=== PATIENT | male | born 1995 | race Caucasian/White ===

== ENCOUNTER 2019-01-31 14:28 | Emergency (ER) | payer BC, OTHER ==
[~2019-01-31] VITALS: Ht 190.5 cm; Wt 135.2 kg
[2019-01-31 14:39] VITALS: BP 129/75
--- NOTE | 2019-01-31 14:53 | PHYS DOC ---
Past History Past Medical History: No Pertinent History Past Surgical History: No Surgical History Smoking: Quit Greater Than 1 Year Alcohol Use: Rarely Drug Use: None Adult General Chief Complaint Chief Complaint: COUGH HPI HPI Patient is a 23-year-old male presents with cough, nasal congestion, and sore throat. Symptoms started 3 days ago. He has some generalized body aches. Chest discomfort with coughing. Nonproductive cough. No fever. No relief with DayQuil or NyQuil or Sudafed. No nausea or vomiting. No recent travel. No sick family members. 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 He is a former smoker. Symptoms are moderate in intensity.[] Review of Systems Review of Systems Constitutional: Denies fever or chills [] Eyes: Denies change in visual acuity, redness, or eye pain [] HENT: See history of present illness, no ear pain, no dental pain. No nosebleed.[] Respiratory: Denies shortness of breath, see history of present illness [] Cardiovascular: No chest pain or palpitations[] GI: Denies abdominal pain, nausea, vomiting, bloody stools or diarrhea [] : Denies dysuria or hematuria [] Musculoskeletal: Denies back pain or joint pain [] Integument: Denies rash or skin lesions [] Neurologic: Denies headache, focal weakness or sensory changes [] Endocrine: Denies polyuria or polydipsia [] All other systems were reviewed and found to be within normal limits, except as documented in this note. Allergies Allergies Allergies Coded Allergies Type Severity Reaction Last Updated Verified azithromycin Allergy Unknown 01/31/19 Yes Physical Exam Physical Exam Constitutional: Well developed, well nourished, no acute distress, non-toxic appearance. [] HENT: Normocephalic, atraumatic, bilateral external ears normal, oropharynx moist, no oral exudates, nose normal. [] Eyes: PERRLA, EOMI, conjunctiva normal, no discharge. [] Neck: Normal range of motion, no tenderness, supple, no stridor. [] Cardiovascular:Heart rate regular rhythm, no murmur [] Lungs & Thorax: Bilateral breath sounds clear to auscultation [] Abdomen: Bowel sounds normal, soft, no tenderness, no masses, no pulsatile masses. [] Skin: Warm, dry, no erythema, no rash. [] Back: No tenderness, no CVA tenderness. [] Extremities: No tenderness, no cyanosis, no clubbing, ROM intact, no edema. [] Neurologic: Alert and oriented X 3, normal motor function, normal sensory function, no focal deficits noted. [] Psychologic: Affect normal, judgement normal, mood normal. [] Current Patient Data Vital Signs Vital Signs Date Time Temp Pulse Resp B/P (MAP) Pulse Ox O2 Delivery O2 Flow Rate FiO2 01/31/19 14:39 98.4 93 16 100 Room Air EKG EKG [] Radiology/Procedures Radiology/Procedures PA and lateral chest x-ray obtained shows no evidence of pneumonia, no pneumothorax, and no pleural effusion.[] Course & Med Decision Making Course & Med Decision Making Pertinent Labs and Imaging studies reviewed. (See chart for details) ED course: Patient arrived, was placed in bed, and tolerated exam well. He was transported to and from radiology with any complications. After the return of the imaging results, findings and plan were discussed with patient and his partner who voiced understanding. All questions were answered. He was discharged in improved condition. Medical decision making: There is no evidence of pneumonia, pneumothorax, nor congestive heart failure. Patient has no PE risk factors. Believe this to be an upper respiratory infection with post nasal drainage triggering the cough reflex. Will also prescribe "just in case" antibiotics if he is not doing better with symptomatically treatment in 2 days. There is no evidence of hypoxia. [] Dragon Disclaimer Dragon Disclaimer This electronic medical record was generated, in whole or in part, using a voice recognition dictation system. Departure Departure: Impression: Primary Impression: Upper respiratory infection Additional Impression: Cough Disposition: 01 HOME, SELF-CARE Condition: IMPROVED Referrals: PCP,NO (PCP) Patient Instructions: Cough, Adult, Upper Respiratory Infection, Adult Additional Instructions: Follow-up with your regular doctor in 2 days. If you do not have a regular doctor list of local clinics will be provided for you. Drink plenty of fluids. Wait 2 days before filling the doxycycline prescription. If doing better, do not take it at all. If no improvement, take as directed. Return to the ER if increasing difficulty breathing, coughing up bloody sputum, or any other concerns. Scripts D-Methorphan Hb/Prometh Hcl (PROMETHAZINE-DM SYRUP) 118 Ml Syrup 5 ML PO PRN Q4HRS for CONGESTION, #120 ML Prov: SALINASCASSLINO DO 01/31/19 Doxycycline Hyclate (DOXYCYCLINE HYCLATE) 100 Mg Tablet 1 TAB PO BID for bronchitis, #20 TAB Prov: LINO SUNSHINE DO 01/31/19 Albuterol Sulfate (VENTOLIN HFA INHALER) 18 Gm Hfa.aer.ad 2 PUFF IH PRN Q4HRS PRN for COUGH, #1 INHALER 0 Refills Prov: LINO SUNSHINE DO 01/31/19 Problem Qualifiers Primary Impression: Upper respiratory infection URI type: unspecified URI Qualified Codes: J06.9 - Acute upper respiratory infection, unspecified BITALINO SIMON Jan 31, 2019 14:53
[2019-01-31] MEDS ORDERED: DOXY100T PO (14:59)
[2019-01-31] MEDS ORDERED: ALBU2.5V8 IH (14:59)
[2019-01-31] MEDS ORDERED: PROM118S9 PO (14:59)
--- NOTE | 2019-01-31 15:02 | RAD ---
CHEST PA LATERAL INDICATION: Cough, congestion. COMPARISON STUDY: 07/07/2015. FINDINGS: Lungs: Normal lung volume. No pulmonary mass or consolidation. The tracheobronchial tree and hilar structures are normal. Pleura: No pleural effusion or pneumothorax. Heart and Mediastinum: The cardiomediastinal silhouette is normal. The great vessels of the thorax are normal. Bones and Soft Tissues: The bones and soft tissues are within normal limits. IMPRESSION: No acute cardiopulmonary process. Electronically signed by: Steffen Aguirre MD (01/31/2019 2:59 PM) [facility]
== END 2019-01-31 15:06 | disposition home or self-care (01) ==
LOC: ER 14:28
DX: J06.9 Acute upper respiratory infection, unspecified (principal); Z87.891 Personal history of nicotine dependence; Z88.1 Allergy status to other antibiotic agents
CPT/HCPCS: 71046; 99284

== ENCOUNTER 2020-02-24 12:29 | Emergency (ER) | payer BC ==
[~2020-02-24] VITALS: Ht 185.4 cm; Wt 146.9 kg
[~2020-02-24 12:29] MED LIST: ALBU2.5V8 IH; DOXY100T PO; PROM118S10 PO
[2020-02-24] MEDS ORDERED: IOHEXOL 350 MG/ML 100 ML VIAL. IV ONE (13:00)
--- NOTE | 2020-02-24 13:06 | PHYS DOC ---
Past History Additional Past Medical Histor: covid 01/23 Past Surgical History: Other Additional Past Surgical Histo: hand surgery Smoking: Quit Greater Than 1 Year Alcohol Use: Rarely Drug Use: None General Adult EDM: Chief Complaint: SHORTNESS OF BREATH HPI: HPI: Patient is a 24-year-old male who presents with chief complaint shortness of breath. Patient had COVID-19 in early January and has had persistent fatigue and shortness of breath and dyspnea on exertion. Patient's had multiple rounds of antibiotics and steroids. Patient was seen by Dr. Crabtree and sent in for CAT scan. Patient describes some tightness in his chest and fatigue. Patient has some nausea but no vomiting. Patient has remained afebrile and his cough is improved. Patient had some mild diarrhea. Review of Systems: Review of Systems: Constitutional: Denies fever or chills, patient complains of generalized fatigue Eyes: Denies change in visual acuity HENT: Denies nasal congestion or sore throat Respiratory: Denies current cough but has shortness of breath Cardiovascular: Describes some chest tightness but no edema GI: Denies abdominal pain, vomiting, patient has had some nausea with diarrhea : Denies dysuria Musculoskeletal: Denies back pain or joint pain Integument: Denies rash Neurologic: Denies headache, focal weakness or sensory changes patient has had generalized weakness Endocrine: Denies polyuria or polydipsia Lymphatic: Denies swollen glands Psychiatric: Denies depression or anxiety Current Medications: Current Meds: Current Medications Medications (Trade) Dose Ordered Sig/Boyd Start Time Stop Time Status Last Admin Dose Admin Iohexol (Omnipaque 350 Mg/ml) 100 ml 1X ONCE 02/24/20 13:00 02/24/20 13:01 DC Allergies: Allergies: Allergies Coded Allergies Type Severity Reaction Last Updated Verified azithromycin Allergy Unknown 02/24/20 Yes Physical Exam: PE: Constitutional: Well developed, well nourished, no acute distress, non-toxic appearance. [] HENT: Normocephalic, atraumatic, bilateral external ears normal, no trismus nose normal. [] Eyes: PERRLA, EOMI, conjunctiva normal, no discharge. [] Neck: Normal range of motion, no tenderness, supple, no stridor. [] Cardiovascular: Regular rate, tachycardic, peripheral pulse intact cap refill is brisk Lungs & Thorax: Bilateral breath sounds clear, no respiratory distress Abdomen: Bowel sounds normal, soft, no tenderness, no masses, no pulsatile masses. [] Skin: Warm, dry, no erythema, no rash. [] Back: No tenderness, no CVA tenderness. [] Extremities: No tenderness, no cyanosis, no clubbing, ROM intact, no edema. [] Neurologic: Alert and oriented X 3, normal motor function, normal sensory function, no focal deficits noted. [] Psychologic: Affect normal, judgement normal, mood normal. [] Current Patient Data: Vital Signs: Vital Signs Date Time Temp Pulse Resp B/P (MAP) Pulse Ox O2 Delivery O2 Flow Rate FiO2 02/24/20 12:35 99.2 107 151/78 102 98 Room Air EKG: EKG: EKG interpreted by me sinus tachycardia with a rate of 107 normal axis normal intervals normal ST segments [] Radiology/Procedures: Radiology/Procedures: [][address] [address] IMAGING REPORT Signed PATIENT: DERRICK SANFORD DACCOUNT: [id number] : 1995 LOCATION: ER AGE: 24 SEX: M EXAM STATUS: REG ER ORD. PHYSICIAN: ELY WHARTON MD REASON: soa, covid in january PROCEDURE: CT ANGIOGRAPHY CHEST Study: CT CHEST WITH CONTRAST - PULMONARY ANGIOGRAM History: Shortness of breath, Covid in January Comparison: Chest radiograph 01/31/2019 Technique: Helical CT of the chest performed after the administration of 100 mL Omnipaque 350 intravenous contrast and timed for angiographic evaluation of the pulmonary arteries per PE protocol. Coronal and sagittal 3D MIP reformations were obtained. One or more of the following individualized dose reduction techniques were utilized for this examination: 1. Automated exposure control 2. Adjustment of the mA and/or kV according to patient size 3. Use of iterative reconstruction technique. Findings: Pulmonary Arteries: Contrast bolus is adequate. There is no acute pulmonary embolism. Heart/Systemic Vasculature: Heart is normal in size. No pericardial effusion. Thoracic aorta is normal in caliber. No aortic dissection. Mediastinum: No mediastinal or hilar lymphadenopathy. Lungs: There is a 1.3 cm ground glass opacity in the posterior right upper lobe. The lungs are otherwise clear. Airways are clear. No pleural effusion or pneumothorax. Neck/Axilla/Body Wall: Visualized portion of the thyroid gland is normal. Gynecomastia. No axillary lymphadenopathy. Upper Abdomen: There is hepatic steatosis noted Bones: No acute osseous abnormality. IMPRESSION: 1. No acute pulmonary embolism. 2. 1.3 cm ground glass opacity in the right upper lobe. This is nonspecific but may be sequela of recent infection. 3. Hepatic steatosis. Electronically signed by: Alicia Smith MD (02/24/2020 1:53 PM) [id number] DICTATED AND SIGNED BY: ALICIA SMITH MD DATE: 02/24/20 1344 CC: ELY WHARTON MD; IFRAH CRABTREE MD ~MTH0 0 Heart Score: HEART Score for Chest Pain: HEART Score for Chest Pain Response (Comments) Value History Slighlty/Non-Suspicious 0 ECG Normal 0 Age < 45 0 Risk Factors 1 or 2 Risk Factors 1 Troponin < Normal Limit 0 Total 1 Risk Factors: Risk Factors: DM, Current or recent (<one month) smoker, HTN, HLP, family history of CAD, obesity. Risk Scores: Score 0 - 3: 2.5% MACE over next 6 weeks - Discharge Home Score 4 - 6: 20.3% MACE over next 6 weeks - Admit for Clinical Observation Score 7 - 10: 72.7% MACE over next 6 weeks - Early Invasive Strategies Course & Med Decision Making: Course & Med Decision Making Pertinent Labs and Imaging studies reviewed. (See chart for details) [] 24-year-old male presents with shortness of breath and fatigue after having COVID-19 last month. Patient was sent did have a CT angiogram by Dr. Jarquin. CT angiogram shows persistent groundglass markings of the lung from recent infection. Patient is clinically stable in the ER. Patient does appear very fatigued will benefit with a week off of work. He will be given that. Patient is a referral to pulmonary doctor. Beulah Disclaimer: Beulah Disclaimer: This electronic medical record was generated, in whole or in part, using a voice recognition dictation system. Departure Departure: Impression: Primary Impression: Dyspnea Additional Impression: Fatigue Disposition: 01 DC HOME SELF CARE/HOMELESS Condition: STABLE Referrals: IFRAH CRABTREE MD (PCP) CRIS GOVEA MD Patient Instructions: Shortness of Breath Additional Instructions: EMERGENCY DEPARTMENT GENERAL DISCHARGE INSTRUCTIONS THANK YOU for coming to [facility] Emergency Department (ED) today and trusting us with your care. We trust that you had a positive experience in our Emergency Department. If you wish to speak to the department Management you can contact the emergency department at YOUR FOLLOW UP INSTRUCTIONS ARE FOLLOWS: Do you have a private doctor? If you do not have a private doctor, please ask for a resource list of physicians or clinics that may be able to assist you with follow up care. The Emergency Physician has interpreted your x-rays. The X-ray specialist will also review them. If there is a change in the findings you will be notified in 48 hours when at all possible. A lab test or lab culture may have been done, your results will be reviewed and you will be notified if you need a change in treatment. ADDITIONAL INSTRUCTIONS AND INFORMATION Your care today has been supervised by a physician who is specially trained in emergency care. Many problems require more than one evaluation for a complete diagnosis and treatment. We recommend that you schedule your follow up appointment as recommended to ensure complete treatment of your illness or injury. If you are unable to obtain follow up care and continue to have a problem, or if your condition worsens we recommend that you return to the ED. We are not able to safely determine your condition over the phone nor are we able to give sound medical advice over the phone. For these safety reasons, if you call for medical advice we will ask you to come to the ED for further evaluation If you have any questions regarding these discharge instructions please call the ED at SAFETY INFORMATION In the interest of safety, wellness, and injury prevention; we encourage you to wear your seatbelt, if you smoke; quit smoking, and we encourage your family to use protective helmet for bicycling and other sporting events that present an increased risk for head injury. IF YOUR SYMPTOMS WORSEN OR NEW SYMPTOMS DEVELOP, OR YOU HAVE CONCERNS ABOUT YOUR CONDITION; OR IF YOUR CONDITION WORSENS WHILE YOU ARE WAITING FOR YOUR FOLLOW UP APPOINTMENT; EITHER CONTACT YOUR PRIMARY CARE DOCTOR, THE PHYSICIAN WHOSE NAME AND NUMBER YOU WERE GIVEN, OR RETURN TO THE ED IMMEDIATELY. ELY WHARTON MD Feb 24, 2020 13:06
--- NOTE | 2020-02-24 13:20 | EKG ---
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
[2020-02-24 13:33] LABS: BASO # 0.1 x10^3/uL (0.0-0.2); BASO % 0 % (0-3); EOS % 0 % (0-3); HEMATOCRIT 48.6 % (39.0-53.0); HEMOGLOBIN 16.1 g/dL (13.0-17.5); LYMPH # 4.2 x10^3/uL (1.0-4.8); LYMPH % 24 % (24-48); MEAN CORPUSCULAR HEMOGLOBIN 31 pg (25-35); MEAN CORPUSCULAR HGB CONC 33 g/dL (31-37); MEAN CORPUSCULAR VOLUME 94 fL (79-100); MONO # 1.7 x10^3/uL (0.0-1.1); MONO % 10 % (0-9); NEUT # 11.4 x10^3uL (1.8-7.7); NEUT % 66 % (31-73); PLATELET COUNT 427 x10^3/uL (140-400); RED BLOOD COUNT 5.15 x10^6/uL (4.30-5.70); RED CELL DISTRIBUTION WIDTH 13.9 % (11.5-14.5); WHITE BLOOD COUNT 17.5 x10^3/uL (4.0-11.0)
[2020-02-24 13:42] LABS: CALCIUM 9.6 mg/dL (8.5-10.1); CREATININE 1.1 mg/dL (0.7-1.3); GFR 80.9; POTASSIUM 4.1 mmol/L (3.5-5.1)
[2020-02-24 13:55] LABS: ALBUMIN 3.6 g/dL (3.4-5.0); ALBUMIN/GLOBULIN RATIO 0.9 (1.0-1.7); TOTAL BILIRUBIN 0.2 mg/dL (0.2-1.0); TOTAL PROTEIN 7.6 g/dL (6.4-8.2)
--- NOTE | 2020-02-24 13:55 | RAD ---
Study: CT CHEST WITH CONTRAST - PULMONARY ANGIOGRAM History: Shortness of breath, Covid in January Comparison: Chest radiograph 01/31/2019 Technique: Helical CT of the chest performed after the administration of 100 mL Omnipaque 350 intrav enous contrast and timed for angiographic evaluation of the pulmonary arteries per PE protocol. Coron al and sagittal 3D MIP reformations were obtained. One or more of the following individualized dose reduction techniques were utilized for this examinat ion: 1. Automated exposure control 2. Adjustment of the mA and/or kV according to patient size 3. Use of iterative reconstruction technique. Findings: Pulmonary Arteries: Contrast bolus is adequate. There is no acute pulmonary embolism. Heart/Systemic Vasculature: Heart is normal in size. No pericardial effusion. Thoracic aorta is chago l in caliber. No aortic dissection. Mediastinum: No mediastinal or hilar lymphadenopathy. Lungs: There is a 1.3 cm ground glass opacity in the posterior right upper lobe. The lungs are otherw ise clear. Airways are clear. No pleural effusion or pneumothorax. Neck/Axilla/Body Wall: Visualized portion of the thyroid gland is normal. Gynecomastia. No axillary l ymphadenopathy. Upper Abdomen: There is hepatic steatosis noted Bones: No acute osseous abnormality. IMPRESSION: 1. No acute pulmonary embolism. 2. 1.3 cm ground glass opacity in the right upper lobe. This is nonspecific but may be sequela of re cent infection. 3. Hepatic steatosis. Electronically signed by: Alicia Smith MD (02/24/2020 1:53 PM) [id number]
[2020-02-24 14:10] LABS: % LYMPHS 30 % (24-48); % MONOS 8 % (0-10); % SEGS 62 % (35-66)
[2020-02-24 14:12] LABS: PLT ESTIMATE ADEQUATE (ADEQUATE)
[2020-02-24 15:18] VITALS: BP 140/91
== END 2020-02-24 15:20 | disposition home or self-care (01) ==
LOC: ER 12:29
DX: R06.00 Dyspnea, unspecified (principal); R53.83 Other fatigue; R06.02 Shortness of breath; R19.7 Diarrhea, unspecified; R11.0 Nausea; Z98.890 Other specified postprocedural states; Z87.891 Personal history of nicotine dependence; Z88.1 Allergy status to other antibiotic agents
CPT/HCPCS: 36415; 71275; 80053; 83880; 84484; 85007; 85025; 93005; 99285; Q9967

== ENCOUNTER → 2020-05-21 | Outpatient (CLI) | payer BC ==
[~2020-05-21] MED LIST changes: +IOHEXOL 350 MG/ML 100 ML VIAL. IV ONE
--- NOTE | 2020-05-21 10:09 | RAD ---
CT angiography of the chest 05/21/2020 8:20 AM Indication: Reason: HAD COVID 01/23 STILL HAVING CHEST TIGHTNESS / Spl. Instructions: / History: Technique: Multiple contiguous axial images were obtained through the chest after administration of i ntravenous iodinated contrast. Coronal, sagittal, and 3-D MIP reformations were created. Comparison: CT angiography of the chest February 24, 2020 Findings: There is no filling defect within central pulmonary arteries or evidence of acute pulmonary embolism. Heart size is normal. No pericardial effusion is identified. No pathologically enlarged mediastinal a denopathy is identified. There is no pneumothorax, pleural effusion, or focal infiltrate. Previously seen groundglass opacity in the right upper lobe along the major fissure has resolved. 2 mm nodule in the anterior-inferior left upper lobe which is unchanged. Limited visualization of the upper abdomen is unremarkable. No acute osseous changes are identified. Impression: 1.No evidence of acute pulmonary embolism or other acute cardiopulmonary process 2. Previously seen groundglass opacity in the right upper lobe has resolved 3. 2 mm nodule, left lower lobe left upper lobe, unchanged. If this patient is considered low risk, n o follow-up is required. Patient is considered high risk follow-up to ensure two-year stability recom mended. CT DOSING PQRS STATEMENT: One or more of the following individualized dose reduction techniques were utilized for this examinat ion: 1. Automated exposure control 2. Adjustment of the mA and/or kV according to patient size 3. Use of iterative reconstruction technique Electronically signed by: Yasmani Mcdowell MD (05/21/2020 10:07 AM) [id number]
== END ==
LOC: CT 08:09
PROVIDERS: ATTEND Internal Medicine Critical Care Medicine
DX: I26.99 Other pulmonary embolism without acute cor pulmonale (principal); R91.1 Solitary pulmonary nodule
CPT/HCPCS: 71275; Q9967